=== PATIENT | female | born 1955 | race Caucasian/White ===

== ENCOUNTER → 2018-11-17 | Outpatient (CLI) | payer MEDICARE ==
[~2018-11-17] MED LIST: ASPI-COR81 M1 PO; ASPIR LOW81 MG PO; CARAFATE1 G1 PO; CELEXA10 MG PO; HEP-FORTE1 CAP PO; HORMONE; HORMONE MEDICATION PO; LEXAPRO10 MG PO; MIMVEY PO; MULTI VITAMINS1 TAB PO; NITROSTAT0.4 MG SL; PROTONIX20 MG PO
[2018-11-18 06:12] LABS: HEPATITIS B SURFACE AG Negative (Negative); HEPATITIS C VIRUS ANTIBODY <0.1 s/co (0.0-0.9)
== END | disposition home or self-care (01) ==
LOC: LAB 10:28 → US 10:28
PROVIDERS: Internal Medicine
DX: R74.8 Abnormal levels of other serum enzymes (principal)

== ENCOUNTER → 2019-12-04 | Outpatient (CLI) | payer MEDICARE | END | disposition home or self-care (01) | LOC: CT 10:00 | PROVIDERS: ATTEND Internal Medicine | DX: M47.812 Spondylosis without myelopathy or radiculopathy, cervical region (principal); G44.51 Hemicrania continua ==

== ENCOUNTER 2020-10-02 13:58 | Emergency (ER) | payer MEDICARE ==
[~2020-10-02] VITALS: Ht 160 cm; Wt 56.7 kg
[2020-10-02] MEDS ORDERED: HYDROCODONE-AC1 EAC1 PO (16:07)
== END 2020-10-02 15:59 | disposition home or self-care (01) ==
LOC: ED 13:58
DX: S82.54XA Nondisplaced fracture of medial malleolus of right tibia, initial encounter for closed fracture (principal); Z79.899 Other long term (current) drug therapy; Z79.82 Long term (current) use of aspirin; Z98.890 Other specified postprocedural states; X50.1XXA Overexertion from prolonged static or awkward postures, initial encounter; Y93.01 Activity, walking, marching and hiking; Y92.098 Other place in other non-institutional residence as the place of occurrence of the external cause; Y99.8 Other external cause status